=== PATIENT | female | born 2000 | race Caucasian/White ===

== ENCOUNTER 2025-02-22 09:40 | Emergency (ER) | payer MEDICAID ==
[~2025-02-22] VITALS: Ht 162.6 cm; Wt 104.0 kg
[2025-02-22 09:45] VITALS: O2SAT 99
[2025-02-22 10:26] LABS: BASOPHILS % 0.3 % (0.0-2.0); EOSINOPHILS % 0.5 % (0.0-5.0); HEMATOCRIT. 38.4 % (36.0-48.0); HEMOGLOBIN. 12.4 g/dL (12.0-16.0); LYMPHOCYTES % 17.4 % (20.0-50.0); MEAN PLATELET VOLUME 7.7 fl (7.4-10.4); MONOCYTES % 3.2 % (2.0-8.0); NEUTROPHILS % 78.6 % (40.0-76.0); PLATELET 341 x1000/uL (130-400); RED BLOOD CELL COUNT 4.64 mill/uL (4.2-5.4); RED CELL DISTRIBUTION WIDTH 15.4 % (11.6-14.6)
[2025-02-22] MEDS: ONDANSETRON 4MG ODT PO ONE (10:38)
[2025-02-22 10:42] LABS: HCG SCREEN NEGATIVE
[2025-02-22] MEDS: KETOROLAC 30MG/ML VIAL IM ONE (10:42)
[2025-02-22 10:45] LABS: CREATININE 0.6 mg/dL (0.6-1.0); UREA NITROGEN BLOOD 9 mg/dL (9-23)
[2025-02-22 10:47] LABS: ASPARTATE AMINOTRANSFERASE 15 IU/L (<34); BILIRUBIN DIRECT 0.1 mg/dL (<=3.0); BILIRUBIN TOTAL 0.4 mg/dL (0.1-1.0); PROTEIN TOTAL 7.5 g/dL (6.0-8.3)
[2025-02-22] MEDS: POTASSIUM CHLORIDE 20MEQ TABLET SR PO ONE (12:00)
[2025-02-22] MEDS ORDERED: P50 MT (13:19)
[2025-02-22] MEDS ORDERED: VALA100044 MT (13:19)
[2025-02-22] MEDS ORDERED: GLYC30DR4 EACHEYE (13:19)
[2025-02-22 13:40] LABS: CLARITY URINE CLOUDY (CLEAR); COLOR URINE DARK YELLOW (YELLOW); PH URINE 6.0 (4.5-8.0); SPECIFIC GRAVITY URINE 1.032 (1.005-1.030)
[2025-02-22 13:41] LABS: GLUCOSE URINE NEGATIVE (NEGATIVE); KETONES URINE 1+ (NEGATIVE); LEUKOCYTE ESTERASE URINE NEGATIVE (NEGATIVE); NITRITE URINE POSITIVE (NEGATIVE); OCCULT BLOOD URINE 3+ (NEGATIVE); PROTEIN URINE 1+ (NEGATIVE); UROBILINOGEN URINE 1.0 E.U./dL (0.2-1.0)
[2025-02-22 13:54] LABS: SQUAMOUS EPITHELIAL CELL URINE 1+ /lpf (RARE/1+)
[2025-02-22 13:56] LABS: BACTERIA URINE 4+; RBC URINE TNTC /hpf (0-2)
[2025-02-22 13:58] LABS: MUCUS URINE TRACE /lpf (< = 2+)
[2025-02-22] MEDS ORDERED: CEFP200T13 MT (14:20)
[2025-02-22] MEDS ORDERED: IBUP-2030 MT (14:20)
[2025-02-22 14:31] VITALS: BP 116/75; PULSE 72; RESP 12; TEMP 36.8; O2SAT 98
== END 2025-02-22 14:32 | disposition home or self-care (01) ==
LOC: ER 09:40
DX: D25.9 Leiomyoma of uterus, unspecified (principal); R10.20 Pelvic and perineal pain unspecified side; N39.0 Urinary tract infection, site not specified; R11.10 Vomiting, unspecified; Z79.624 Long term (current) use of inhibitors of nucleotide synthesis
CPT/HCPCS: 99285; 74176; 76856; 80076; 80048; 81003; 81025; 84703; 83690; 85025; 36415; 96372; J1885; Q0162